=== PATIENT | female | born 1985 | race Caucasian/White ===

== ENCOUNTER 2018-01-17 19:10 | Emergency (ER) | payer MEDICAID ==
[~2018-01-17] VITALS: Ht 152.4 cm; Wt 49.9 kg
[2018-01-17 19:24] VITALS: BP 117/73
--- NOTE | 2018-01-17 19:29 | NUR ---
TO BED # 2 AMBULATORY
--- NOTE | 2018-01-17 19:30 | NUR ---
REPORT GIVEN TO ALEJO FAITH.
--- NOTE | 2018-01-17 19:30 | NUR ---
PATIENT PRESENTS TO ED WITH REDNESS AND SWELLING TO RIGHT KNEE X5 DAYS ACCOMPANIED BY FEVER X1 DAY BUT NONE AT THIS TIME. PATIENT ALSO C/O FLANK PAIN X1 DAY. PT DENIES N/V/D; SKIN IS PINK/WARM/DRY; AAOX4 WITH EVEN AND STEADY GAIT; LUNGS CLEAR BL; HR EVEN AND REGULAR; PT DENIES ANY CP, SOB, OR COUGH AT THIS TIME; PATIENT STATES PAIN OF 9/10 AT THIS TIME; VSS; PATIENT POSITIONED FOR COMFORT; HOB ELEVATED; BEDRAILS UP X1; BED DOWN. ER MD MADE AWARE OF PT STATUS.
[2018-01-17] MEDS ORDERED: LIDOCAINE/EPI 1% 1:100000 20 ML VIAL INJ ONE (20:05)
--- NOTE | 2018-01-17 20:35 | NUR ---
LIDOCAINE UNUSED AND RETURNED TO PHARMACY BIN. PER DR. DUNN INCISION AND DRAINAGE WILL NOT BE DONE AT THIS TIME.
[2018-01-17 20:48] VITALS: BP 116/74
--- NOTE | 2018-01-17 20:48 | NUR ---
Patient discharged with v/s stable. Written and verbal after care instructions given and explained. Patient alert, oriented and verbalized understanding of instructions. Ambulatory with steady gait. All questions addressed prior to discharge. ID band removed. Patient advised to follow up with PMD. Rx of BACTRIM, KEFLEX, NAPROSYN, TYLENOL given. Patient educated on indication of medication including possible reaction and side effects. Opportunity to ask questions provided and answered.
== END 2018-01-17 20:48 | disposition home or self-care (01) ==
LOC: MED 19:10
DX: L03.115 Cellulitis of right lower limb (principal); N39.0 Urinary tract infection, site not specified; Z88.5 Allergy status to narcotic agent
CPT/HCPCS: 81002; 81025; 99284; J2001

== ENCOUNTER 2019-08-04 05:44 | Emergency (ER) | payer SELFPAY ==
[~2019-08-04] VITALS: Ht 152.4 cm; Wt 50.3 kg
[2019-08-04 05:50] VITALS: BP 134/86
--- NOTE | 2019-08-04 05:50 | NUR ---
TO BED # 08 AMBULATORY
--- NOTE | 2019-08-04 05:53 | NUR ---
ERMD AT PT'S BEDSIDE
--- NOTE | 2019-08-04 05:57 | NUR ---
34 Y/O FEMALE PRESENTS TO ED, C/O RIGHT JAW PAIN 06/10. PT STATES PAIN STARTED 1 WEEK AGO; PAIN BECAME UNTOLERABLE, PER PT. TOOK EXCEDRIN TODAY WITH NO RELIEF. PT VSS. ERMD AWARE. WILL CONTINUE TO MONITOR.
[2019-08-04 06:02] VITALS: BP 134/86
--- NOTE | 2019-08-04 06:02 | NUR ---
PT DISCHARGED WITH PAPERWORK. RX T3. EDUCATED PT REGARDING MEDICATION AND S/E. EDUCATED PT REGARDING D/C DIAGNOSIS AND INSTRUCTIONS. PT VERBALIZED UNDERSTANDING OF TEACHING. TOLD PT TO FOLLOW UP WITH DENTIST AND WHEN TO RETURN TO ED. PT AT STABLE CONDITION. ALL QUESTIONS ANSWERED.
== END 2019-08-04 06:02 | disposition home or self-care (01) ==
LOC: MED 05:44
DX: K04.7 Periapical abscess without sinus (principal); H92.09 Otalgia, unspecified ear; Z88.5 Allergy status to narcotic agent
CPT/HCPCS: 99281